=== PATIENT | female | born 1975 | race Caucasian/White ===

== ENCOUNTER → 2016-11-14 | Outpatient (CLI) | payer BC ==
[~2016-11-14] MED LIST: CALC500C3; HMLI SC; HUMALIN SC; MULT-506 PO; [UNRECOGNIZED DRUG - OTHER] PO
--- NOTE | 2016-11-15 17:55 | DIAGNOSTIC IMAGING REPORT ---
LEFT WRIST MIN 3 VIEWS ROUTINE CLINICAL HISTORY: LEFT WRIST PAIN COMPARISON STUDY: None. FINDINGS: No fracture or dislocation within the left wrist. The scaphoid appears intact. No radiopaque foreign bodies. On the lateral view there is a 1 cm focal area of soft tissue thickening dorsal to the distal carpal row. The location favors a ganglion cyst. No underlying bony erosion. IMPRESSION: A 1 cm focal area of soft tissue thickening dorsal to the distal carpal row which is technically nonspecific on a plain film study. However, the location favors a ganglion cyst. No underlying bony erosion. This can be confirmed with follow-up MRI. Electronically signed by: Rickey Zayas M.D. 11/15/2016 5:53 PM Dictated Date/Time: 11/15/2016 5:51 PM
== END | disposition home or self-care (01) ==
LOC: C.RDSM 13:09
PROVIDERS: ATTEND Physical Medicine & Rehabilitation Sports Medicine
DX: M67.432 Ganglion, left wrist (principal)

== ENCOUNTER → 2016-12-20 | Day surgery (SDC) | payer BC ==
[2016-12-16 15:58] VITALS: Ht 154.9 cm; Wt 45.5 kg
[~2016-12-20] VITALS: Ht 154.9 cm; Wt 45.5 kg
[~2016-12-20] MED LIST changes: +ACETAMINOPHEN IV ONE; +ATROPINE SULFATE 0.1 MG/ML 5ML SYR IV PRN; +BUPIVACAINE 0.5 % 5 MG/1 ML PF 10ML VIAL ONE; -CALC500C3; +CEFAZOLIN 2000 MG/60 ML D5W IV SCH; +CHECK SCOPOLAMINE PATCH PLACEMENT SCH; +DEXAMETHASONE SOD INJ 4 MG/ML VIAL ONE; +EpHEDrine SULFATE INJ 50 MG/ML AMP IV PRN; +FENTANYL CITRATE INJ 50 MCG/1 ML 2 ML VIAL ONE; -HMLI SC; -HUMALIN SC; +KETAMINE HCL INJ 50 MG/ML 10 ML VIAL ONE; +KETOROLAC TROMETHAMINE 30 MG/ML VIAL ONE; +LACTATED RINGER'S 1000ML 1,000 ML IV SCH; +LIDOCAINE HCL 1% 20 ML VIAL ONE; +LIDOCAINE HCL 2% 2 ML VIAL (20MG/ML) ONE; +LIDOCAINE MPF 1% INJ 30 ML SDV (L&D) INFIL ONE; +MIDAZOLAM HCL 1 MG/ML 2ML VIAL ONE; +NURSING VERBAL MED ORDER ONE; +ONDANSETRON INJ 2 MG/ML 2 ML VIAL IV PRN; +ONDANSETRON INJ 2 MG/ML 2 ML VIAL ONE; +PROPOFOL IV EMULSION 10 MG/ML 20 ML VIAL IV ONE; +SCOPOLAMINE 1.5 MG TDSY TD ONE; +SODIUM CHLORIDE 0.9% 1000ML 1,000 ML IV SCH; -[UNRECOGNIZED DRUG - OTHER] PO
--- NOTE | 2016-12-20 09:35 | Discharge Instructions ---
Discharge Instructions Visit Reason for Visit: Left Wrist Dorsal Ganglion Cyst Discharge Discharge Diagnosis / Problem: same Discharge Goals Goal(s): Decrease discomfort, Improve function Medications Stopped Medications Name(s): na Restart Stopped Medication(s): use scripts Activity Recommendations Activity Limitations: as noted below Lifting Limitations: until after follow-up appointment Exercise/Sports Limitations: until after follow-up appointment May Resume Sexual Activity: when tolerated Shower/Bathe: keep incision dry Driving or Machine Use: no limitations Anesthesia . Post Anesthesia Instructions: If you have had General Anesthesia or IV Sedation: * Do not drive today. * Resume driving when surgeon permits. * Do not make important decisions or sign legal documents today. * Call surgeon for: 1. Temperature elevations greater than 101 degrees F. 2. Uncontrollable pain. 3. Excessive bleeding. 4. Persistent nausea and vomiting. 5. Medication intolerance (nausea, vomiting or rash). * For nausea and vomiting use only clear liquids such as: tea, soda, bouillon until nausea subsides, then gradually increase diet as tolerated. * If you have any concerns or questions, call your surgeon's office. If physician is unavailable and it is an emergency, call 911 or go to the nearest emergency room. . Instructions / Follow-Up Instructions / Follow-Up The following are instructions to follow after minor hand surgery. ACTIVITY RECOMMENDATIONS: * Minimize activity until your first visit after surgery. * No excessive walking, jogging, sports or laboring. * Return to activity is individualized. Most patients are able to return to everyday activities within 2 weeks. * Return to sports or intensive labor usually occurs at 1-2 months. * DRIVING: Driving may be resumed when you feel you have adequate pain control and use of the hand. * BATHING: You may shower or sponge-bathe immediately after surgery. The dressing will need to be covered with a plastic bag or plastic wrap until the dressing is changed on the fourth or fifth day after surgery. Once the dressing has been changed on the fourth or fifth day after surgery, you may shower and get the incision wet. * Wash with regular soap and water. * Do not bathe (submerge the incision), soak, swim or use a hot tub until the incision is completely healed over with normal skin and the doctor has given the OK to proceed. * There is no need to apply any ointments, powders or salves to your incision. * Do not apply alcohol or hydrogen peroxide directly to the incision. Diluted peroxide (50:50 mixture with sterile saline) may be used to clean dried blood from around the incision area. WORK/SCHOOL: * You may return to sedentary work or school when you are feeling comfortable. This is usually 3-7 days after surgery. * Expect increased discomfort with increased activity. Continue to elevate and ice the hand as much as possible. DIET: * Resume previous diet. MEDICATIONS: * You will have a prescription for pain medication and an anti-inflammatory medication after surgery. Use the pain pills for severe pain and the anti-inflammatory for less severe pain. * Once the pain pills have run out, try to use the anti-inflammatory. If this is not effective then contact the office for assistance. * The pain medication may cause nausea, constipation and sleepiness. You should see how they affect you before driving or similar activity. * The anti-inflammatory may cause stomach upset and bleeding. If this occurs, let your doctor know immediately . * Some patients may need blood clot prevention. This can be done with either a pill or a simple shot. Your doctor will advise you on when to begin these medications and how to take them. * Do not take aspirin or other anti-inflammatory products (i.e. Advil or Aleve ) if taking blood thinner medication. * Take a stool softener like Colace or a stimulant like Senokot to prevent constipation. SPECIAL CARE INSTRUCTIONS: ICE: * Do not apply ice directly to the skin. * Use a thin dressing or stockinet between the skin and ice bag. The dressing in place after surgery will suffice. * Apply ice for 20-30 minutes and repeat every 2-4 hours. This is especially important for the first 3-7 days after surgery. * Once the pain improves, use ice as needed. ELEVATION: * Keep your hand elevated at or above the level of your heart as much as possible. * Expect some increased discomfort and swelling if you allow your hand to hang down for any length of time. DRESSING: * Your dressing will be changed 4-5 days after surgery by the physical therapist or physician's medication assistant. Leave your dressing intact until this time. * You may then change your dressing daily with clean dry gauze or Band-aids and a soft wrap or stockinet. * Always wash your hands prior to touching the incision area. * Once the stitches are removed, you may leave the wound open to air or cover with a thin bandage. * There is no need to apply any ointments, powders or salves to your incision. * Expect some bloody drainage for the first few days after surgery. * Leave the tape strips in place (if present) for 5-7 days. * The initial dressing after surgery may become soaked with blood or fluid which is normal. You may reinforce your dressing with clean, dry gauze as needed. BRACE: * Bracing is generally not needed after routine hand surgery. THERAPY: * Physical therapy may be prescribed after your surgery. * For carpal tunnel and trigger digit surgery you may begin moving your fingers and wrist immediately after surgery as tolerated. * Be careful to not overuse. * Once the sutures are removed, further range of motion exercises can be performed. * Hand incisions may be very sensitive for a few months after surgery so avoid excessive pressure on the incision. If necessary, use a padded weightlifters' glove. * You may massage the incision with skin cream to make it less sensitive and reduce scarring. * Hand strength usually returns with normal use. * If needed, squeezing a soft sponge or Play-dough may help. * Your doctor will recommend physical therapy if necessary. PROBLEMS/QUESTIONS: * If you have any problems such as severe pain, numbness, tingling or high fevers or if you have any questions, please contact the office at [phone]. * It is not uncommon to have some numbness and tingling after the surgery especially if you have had a nerve block done. This should gradually improve over the first 1- 2 days. If this persists longer or worsens then contact the office. FOLLOW UP VISIT: * If not already scheduled, please call the office at to schedule follow-up appointments for approximately 10 days, 6 weeks and 3 months after surgery. Diet Recommendations Recommended Home Diet: resume previous diet Procedures Procedures Performed: ganglion excision Pending Studies Studies pending at discharge: no Medical Emergencies . Who to Call and When: Medical Emergencies: If at any time you feel your situation is an emergency, please call 911 immediately. . Non-Emergent Contact Non-Emergency issues call your: Specialist Call Non-Emergent contact if: temperature is above 101.5 . . "Provider Documentation" section prepared by Isma Deluna.
--- NOTE | 2016-12-20 10:49 | History & Physical Bridge Note ---
H&P Re-Evaluation Bridge Note: I have examined the patient, reviewed the History & Physical and in the interval since the performance of the History & Physical I have noted the following changes of clinical significance: No changes noted
--- NOTE | 2016-12-20 11:55 | [facility] Post Operative Brief Note ---
Immediate Operative Summary Operative Date Dec 20, 2016. Pre-Operative Diagnosis Left Wrist Ganglion Cyst Post-Operative Diagnosis Same Procedure(s) Performed Left Wrist Open Ganglion Cyst Excision Surgeon Dr. Deluna Cone Former Surgeon(s) Yvette Chiang PA-C Estimated Blood Loss 0 mL Findings ganglion Fluids (cc crystalloids) 700cc Specimens A. Left Wrist Ganglion Cyst Drains none Anesthesia lma/local Complication(s) None Disposition Recovery Room / PACU
--- NOTE | 2016-12-20 11:57 | [facility] Operative Report ---
Operative Report Operative Date Dec 20, 2016. Pre-Operative Diagnosis Left Wrist Ganglion Cyst Post-Operative Diagnosis Same Procedure(s) Performed Left Wrist Open Ganglion Cyst Excision Surgeon Dr. Deluna Queen Producer Surgeon(s) Yvette Chiang PA-C Estimated Blood Loss 0 mL Findings same Fluids (cc crystalloids) 700cc Specimens A. Left Wrist Ganglion Cyst Drains none Anesthesia general Complication(s) None Disposition Recovery Room / PACU Implants none Indications continued cystic changes regarding left dorsal wrist ganglion, conservative measures failed, surgery recommended, consents signed. Description of Procedure taken to the OR, prepped and draped, I was present the entire case, please see Dr. Deluna's op note for further detail. I attest to the content of the Intraoperative Record and any orders documented therein. Any exceptions are noted below.
--- NOTE | 2016-12-20 12:13 | OPERATIVE REPORT ---
DATE OF OPERATION: 12/20/2016 PREOPERATIVE DIAGNOSIS: Dorsal carpal ganglion extensor surface left wrist. POSTOPERATIVE DIAGNOSIS: Same. OPERATION PERFORMED: Ganglionectomy with capsular stock repair. SURGEON: Dr. Deluna. LABOR RELATIONS TEACHER: Kenny Chiang PA-C. No resident or fellow available. PERIOPERATIVE SITUATION: Medically cleared female with intractable increasing sized ganglion with pain and discomfort. At this point wants it excised. OPERATION AND FINDINGS: PROCEDURE: The patient appropriately identified, site verified, consent verified, 2 grams of Ancef confirmed as being given. The upper extremity was prepped and draped in usual routine fashion. Tourniquet was inflated to 200 mmHg after exsanguination of limb with a rubber Esmarch bandage for a total of approximately 15 minutes. A dorsal exposure was utilized. Full thickness flaps raised and tedious dissection around the lesion was then carried out, it came out between the extensor carpi radialis longus and brevis and the EP, was dissected down to the joint. It was then resected and then the area of the capsule closed with a 3-0 Vicryl circular stitch closing the hole down nicely. Moving the wrist, there was no leakage of fluid. The wound was then irrigated and then closed with 3-0 Vicryl and running subcuticular 3-0 nylon, Dermabond and appropriate dorsal splint. Estimated blood loss was trace. Crystalloid was 700 mL. No DVT prophylaxis required. I attest to the content of the Intraoperative Record and any orders documented therein. Any exceptio ns are noted below.
[2016-12-20 12:54] VITALS: TEMP 37
--- NOTE | 2016-12-20 13:29 | Anesthesia Progress Nt - [facility] ---
Anesthesia Post Op Note Date & Time Dec 20, 2016 at 13:29 Vital Signs Pain Intensity: 4 Vital Signs Past 12 Hours Date Time Temp Pulse Resp B/P Pulse Ox O2 Delivery O2 Flow Rate FiO2 12/20/16 12:54 65 19 99 12/20/16 12:54 37 64 19 12/20/16 12:53 128/88 12/20/16 12:49 62 18 98 12/20/16 12:49 62 18 12/20/16 12:48 127/91 12/20/16 12:44 64 15 12/20/16 12:44 64 15 100 12/20/16 12:43 140/92 12/20/16 12:39 64 16 100 12/20/16 12:39 66 16 12/20/16 12:38 140/98 12/20/16 12:34 60 13 100 12/20/16 12:34 60 13 12/20/16 12:33 145/91 12/20/16 12:29 63 23 100 12/20/16 12:29 63 23 12/20/16 12:28 133/90 12/20/16 12:24 69 21 100 12/20/16 12:24 68 21 12/20/16 12:23 146/93 12/20/16 12:19 61 21 100 12/20/16 12:19 63 21 12/20/16 12:18 123/91 12/20/16 12:14 69 17 12/20/16 12:14 68 17 100 12/20/16 12:13 124/89 12/20/16 12:09 81 23 12/20/16 12:09 79 23 100 12/20/16 12:08 126/87 12/20/16 12:05 36.5 88 16 126/87 100 Mask 6 12/20/16 12:04 126/87 12/20/16 10:18 36.7 65 18 126/78 99 Room Air Notes Mental Status: alert / awake / arousable, participated in evaluation Pt Amnestic to Procedure: Yes Nausea / Vomiting: adequately controlled Pain: adequately controlled Airway Patency, RR, SpO2: stable & adequate BP & HR: stable & adequate Hydration State: stable & adequate Anesthetic Complications: no major complications apparent
[2016-12-20 13:35] VITALS: BP 125/80; PULSE 65; O2SAT 99
== END | disposition home or self-care (01) ==
LOC: X.SURG 10:04
PROVIDERS: ATTEND Physical Medicine & Rehabilitation Sports Medicine
DX: M67.432 Ganglion, left wrist (principal); Z98.890 Other specified postprocedural states; Z98.51 Tubal ligation status; Z88.2 Allergy status to sulfonamides; Z82.49 Family history of ischemic heart disease and other diseases of the circulatory system

== ENCOUNTER → 2018-02-05 | Outpatient (CLI) | payer BC ==
[~2018-02-05] MED LIST changes: -ACETAMINOPHEN IV ONE; -ATROPINE SULFATE 0.1 MG/ML 5ML SYR IV PRN; -BUPIVACAINE 0.5 % 5 MG/1 ML PF 10ML VIAL ONE; -CEFAZOLIN 2000 MG/60 ML D5W IV SCH; -CHECK SCOPOLAMINE PATCH PLACEMENT SCH; -DEXAMETHASONE SOD INJ 4 MG/ML VIAL ONE; -EpHEDrine SULFATE INJ 50 MG/ML AMP IV PRN; -FENTANYL CITRATE INJ 50 MCG/1 ML 2 ML VIAL ONE; -KETAMINE HCL INJ 50 MG/ML 10 ML VIAL ONE; -KETOROLAC TROMETHAMINE 30 MG/ML VIAL ONE; -LACTATED RINGER'S 1000ML 1,000 ML IV SCH; -LIDOCAINE HCL 1% 20 ML VIAL ONE; -LIDOCAINE HCL 2% 2 ML VIAL (20MG/ML) ONE; -LIDOCAINE MPF 1% INJ 30 ML SDV (L&D) INFIL ONE; -MIDAZOLAM HCL 1 MG/ML 2ML VIAL ONE; -NURSING VERBAL MED ORDER ONE; -ONDANSETRON INJ 2 MG/ML 2 ML VIAL IV PRN; -ONDANSETRON INJ 2 MG/ML 2 ML VIAL ONE; -PROPOFOL IV EMULSION 10 MG/ML 20 ML VIAL IV ONE; -SCOPOLAMINE 1.5 MG TDSY TD ONE; -SODIUM CHLORIDE 0.9% 1000ML 1,000 ML IV SCH
--- NOTE | 2018-02-06 07:40 | MAMMOGRAPHY REPORT ---
BILATERAL DIGITAL SCREENING MAMMOGRAM TOMOSYNTHESIS WITH CAD: 02/05/2018 CLINICAL HISTORY: Routine screening. Patient has no complaints. TECHNIQUE: Bilateral CC and MLO views of the breasts with and without implant displacement views were obtained. Tomosynthesis was also performed on the implant displaced views. Current study was also evaluated with a Computer Aided Detection (CAD) system. COMPARISON: No prior exams were available for comparison. BREAST COMPOSITION: There are scattered areas of fibroglandular density in both breasts. FINDINGS: Bilateral subpectoral saline implants are intact. No suspicious mass, architectural distor tion or cluster of microcalcifications is seen. IMPRESSION: ACR BI-RADS CATEGORY 1: NEGATIVE There is no mammographic evidence of malignancy. A 1 year screening mammogram is recommended. The pa tient will receive written notification of the results. Approximately 10% of breast cancers are not detected with mammography. A negative mammographic report should not delay biopsy if a clinically suggestive mass is present. Lindsey Steele M.D. ay/:02/05/2018 15:58:34 Shade Maker: Negra BARNES(Cecilia)([place]), [facility] letter sent: Normal 1/2 BI-RADS Code: ACR BI-RADS Category 1: Negative
== END | disposition home or self-care (01) ==
LOC: C.MAMM 12:30
PROVIDERS: ATTEND Physician Assistant
DX: Z12.31 Encounter for screening mammogram for malignant neoplasm of breast (principal); Z98.82 Breast implant status

== ENCOUNTER → 2018-02-08 | Outpatient (CLI) | payer BC | END | disposition home or self-care (01) | LOC: C.PAPS 14:05 | PROVIDERS: ATTEND Obstetrics & Gynecology | DX: Z01.419 Encounter for gynecological examination (general) (routine) without abnormal findings (principal) ==